=== PATIENT | female | born 1955 | race Caucasian/White ===

== ENCOUNTER 2017-12-29 08:45 | Emergency (ER) | payer OTHER ==
[~2017-12-29] VITALS: Ht 165.1 cm; Wt 99.8 kg
[2017-12-29] MEDS ORDERED: COZAAR 25 MG TA25 M1 PO (08:53)
[2017-12-29] MEDS ORDERED: ADVAIR HFA 230M12 GM INH (08:53)
[2017-12-29] MEDS ORDERED: NORCO 5-325 TA1 EACH PO (10:04)
[2017-12-29] MEDS ORDERED: IBUPROFEN 800800 M1 PO (10:04)
[2017-12-29 10:16] VITALS: BP 180/70
[2018-04-25] MEDS ORDERED: ASPIRIN325 PO (09:10)
== END 2017-12-29 10:17 | disposition home or self-care (01) ==
LOC: M.ERS 08:45
DX: S86.812A Strain of other muscle(s) and tendon(s) at lower leg level, left leg, initial encounter (principal); J44.9 Chronic obstructive pulmonary disease, unspecified; I10 Essential (primary) hypertension; W01.0XXA Fall on same level from slipping, tripping and stumbling without subsequent striking against object, initial encounter; Y93.89 Activity, other specified; Y92.89 Other specified places as the place of occurrence of the external cause; Y99.8 Other external cause status

== ENCOUNTER 2018-04-17 21:07 | Emergency (ER) | payer OTHER ==
[~2018-04-17] VITALS: Ht 165.1 cm; Wt 90.7 kg
[~2018-04-17 21:07] MED LIST: ADVAIR HFA 230M12 GM INH; COZAAR 25 MG TA25 M1 PO; IBUPROFEN 800800 M1 PO; NORCO 5-325 TA1 EACH PO
[2018-04-17] MEDS ORDERED: NORCO 5-325 TA1 EACH PO (22:05)
[2018-04-17] MEDS ORDERED: NABUMETONE 750750 M1 PO (22:05)
[2018-04-17 22:23] VITALS: BP 136/70
[2018-04-25] MEDS ORDERED: ASPIRIN325 PO (09:10)
== END 2018-04-17 22:24 | disposition home or self-care (01) ==
LOC: M.ERS 21:07
DX: S52.502A Unspecified fracture of the lower end of left radius, initial encounter for closed fracture (principal); S52.612A Displaced fracture of left ulna styloid process, initial encounter for closed fracture; J44.9 Chronic obstructive pulmonary disease, unspecified; I10 Essential (primary) hypertension; W18.09XA Striking against other object with subsequent fall, initial encounter; Y93.89 Activity, other specified; Y92.89 Other specified places as the place of occurrence of the external cause; Y99.8 Other external cause status

== ENCOUNTER → 2018-04-25 | Day surgery (SDC) | payer OTHER ==
[~2018-04-25] MED LIST changes: +ASPIRIN325 PO; +NABUMETONE 750750 M1 PO
[2018-04-25 06:45] LABS: HEMATOCRIT 40.6 % (37.0-47.0); HEMOGLOBIN 13.3 gm/dL (12.0-15.0); MCH 28.6 pg (26.0-34.0); MCHC 32.8 g/dL (28.0-37.0); MCV 87.1 fL (80.0-100.0); MPV 8.3 fl. (7.2-11.1); RBC 4.66 mil/uL (4.20-5.00); RDW-CV 14.4 % (10.5-14.5); WBC 8.4 thou/uL (4.0-11.0)
[2018-04-25 06:53] LABS: CALCIUM 8.6 mg/dL (8.5-10.1); CREATININE 0.6 mg/dL (0.6-1.3); POTASSIUM 4.5 mmol/L (3.5-5.1)
--- NOTE | 2018-04-25 13:57 | EKG ---
[place] [address] ELECTROCARDIOGRAM REPORT Name: PATRICKANDRÉS Tri Room: [facility]#: [id number] Admission: 04/25/18 Attend Phys: Rodrigo Castillo DO Discharge: Date of : 59 Report #: [id number] THIS REPORT FOR: //name// [facility] Test Date: 2018-04-25 Test Time: 06:30:56 Pat Name: ANDRÉS NGUYEN Department: Room: Gender: F Hand Turner: MALIK : 1955 Requested By: Rodrigo Castillo Order Number: [id number] Reading MD: Mark Bolanos Measurements Intervals [place] Rate: 82 P: 40 NM: 170 QRS: 17 QRSD: 111 T: 33 QT: 402 QTc: 470 Interpretive Statements Sinus rhythm Minor IVCD Low voltage, precordial leads Baseline wander in lead(s) I,II,III,aVR,aVF,V5 No previous ECG available for comparison Electronically Signed On 04-25-2018 13:57:33 CDT by Mark Bolanos [email or web address] <ELECTRONICALLY SIGNED> By: Mark Bolanos MD, [facility] 04/25/18 1357 0630 Mark Bolanos MD, [facility] /EPI
--- NOTE | 2018-05-09 08:06 | OP ---
[address] [address] OPERATIVE REPORT Name: ANDRÉS NGUYEN Room: [facility]#: [id number] Admission: 04/25/18 Attend Phys: Rodrigo Castillo DO Discharge: Date of : 59 Report #: [id number] THIS REPORT FOR: //name// CC: Rodrigo Mooney [facility] DICTATED BY: Hugo Oliver DO DATE OF SERVICE: 04/25/2018 PREOPERATIVE DIAGNOSIS: Closed comminuted Frykman VII distal radius fracture. POSTOPERATIVE DIAGNOSIS: Closed comminuted Frykman VII distal radius fracture. SURGEON: Rodrigo Castillo DO. RACK MAKER: Hugo Oliver DO. OPERATION PERFORMED: Closed reduction with Migdalia external fixation of percutaneous pinning. ANESTHESIA TYPE: General. ESTIMATED BLOOD LOSS: 5 mL. SPECIMEN REMOVED: None. COMPLICATIONS: None. FINDINGS: The patient had a very comminuted Frykman VII distal radius fracture. We did get reduction as comminution allowed. Compartments were soft and compressible and she had brisk capillary refill, status post procedure. INDICATIONS FOR PROCEDURE: The patient is seen in the clinic and x-rays reviewed from [facility], which demonstrated a Frykman type VII distal radius fracture with intra-articular comminution and overall poor alignment. We discussed the risks, benefits, complications, alternatives, indications for procedure with her and she elects to proceed with closed reduction and external fixation and percutaneous pinning of the left distal radius. These risks include but not limited to risk of infection, loss of reduction, stiffness, pain, and risks to nerves and vessels, continued numbness, weakness as well as DVT, pulmonary embolism, and risks associated with anesthesia including . She voiced understanding and wished to proceed. DESCRIPTION OF PROCEDURE: The patient was seen in the preoperative holding area. Correct operative site was marked. Written [place] [address] OPERATIVE REPORT Name: PATRICKANDRÉS Room: [facility]#: [id number] Admission: 04/25/18 Attend Phys: Rodrigo Castillo DO Discharge: Date of : 59 Report #: [id number] was transferred to the operative suite and placed supine on the operating table. She was given the benefit of general anesthesia by the anesthesia team. At this point, a timeout was performed and all of the attendants were in agreement with the correct operative site and procedure to be performed. The left upper extremity was then prepped and draped in normal sterile fashion. We then used an x-ray and a [place] to smiley our level at the second metacarpal for pin placement. A 15-blade scalpel was used to incise the skin x 2 and pins were inserted into the second metacarpal using our guide for spacing. Once these were confirmed with fluoroscopy, we turned our attention to our radial pins and a 4-cm incision was made and I bluntly taken down to the level of bone. We then placed our 2 radial pins with placement once again verified with fluoroscopy. Once these were placed, we turned our attention to reduction, a closed reduction of her distal radius and found that she had comminution on our volar tilt. We did get some good length and a pin was placed through the radial styloid to maintain its length. We then applied our external frame and all final screws were tightened. Once these were tightened, we took final x-rays. These were saved to the chart. The skin was closed using 4-0 nylon in simple interrupted fashion. A Xeroform was placed over all pin sites and percutaneous pin site for our K-wire. Once this was done, we checked our cap refill. This was found to be stable and our 4 x 4s and Kerlix and Blake wrap were placed over. Our pin were then cut down to equal size and covered with our pin caps. All needle counts were correct at the end of the case x 2. I attest Dr. Castillo was present through all critical decision making aspects of the case. DISPOSITION: The patient returned to PACU in stable condition. She was monitored until awake and stable and discharged home. She will follow up as scheduled or sooner if any problems arise. She will be given DVT prophylaxis as well p.o. analgesia as appropriate. <ELECTRONICALLY SIGNED> By: Rodrigo Castillo DO 05/09/18 0806 0836 1133Cnoah Castillo DO /nt
== END | disposition home or self-care (01) ==
LOC: M.SUR 06:03
PROVIDERS: Orthopaedic Surgery
DX: S52.592A Other fractures of lower end of left radius, initial encounter for closed fracture (principal); X58.XXXA Exposure to other specified factors, initial encounter; Y93.9 Activity, unspecified; Y92.89 Other specified places as the place of occurrence of the external cause; Y99.9 Unspecified external cause status

== ENCOUNTER → 2018-05-09 | Outpatient (CLI) | payer OTHER | LOC: M.LAB 09:57 | DX: S52.532D Colles' fracture of left radius, subsequent encounter for closed fracture with routine healing (principal); I10 Essential (primary) hypertension; J44.9 Chronic obstructive pulmonary disease, unspecified; X58.XXXD Exposure to other specified factors, subsequent encounter ==

== ENCOUNTER → 2018-05-30 | Outpatient (CLI) | payer OTHER ==
[2018-05-30 10:37] LABS: HEMOGLOBIN 13.4 gm/dL (12.0-15.0); MCH 28.5 pg (26.0-34.0); MCHC 32.7 g/dL (28.0-37.0); MCV 87.2 fL (80.0-100.0); RBC 4.7 mil/uL (4.20-5.00); RDW-CV 14.8 % (10.5-14.5); WBC 10.4 thou/uL (4.0-11.0)
[2018-05-30 10:49] LABS: POTASSIUM 4.4 mmol/L (3.5-5.1)
== END ==
LOC: M.LAB 10:21
PROVIDERS: Orthopaedic Surgery
DX: L03.114 Cellulitis of left upper limb (principal)

== ENCOUNTER → 2018-07-18 | Outpatient (CLI) | payer OTHER | LOC: M.LAB 09:39 | DX: L03.114 Cellulitis of left upper limb (principal) ==

== ENCOUNTER → 2018-11-20 | Outpatient (CLI) | payer OTHER | LOC: M.RAD 11:04 | DX: I51.7 Cardiomegaly (principal); J44.9 Chronic obstructive pulmonary disease, unspecified ==

== ENCOUNTER → 2018-11-27 | Outpatient (CLI) | payer OTHER ==
--- NOTE | 2018-11-27 13:37 | 2DMMODE ---
[place] [address] 2 D/M-MODE ECHOCARDIOGRAM Name: ANDRÉS NGUYEN Room: [facility]#: [id number] Admission: 11/27/18 Attend Phys: Irma Lehman MD Discharge: Date of : 59 Date of Service: 11/27/18 1337 Report #: [id number] THIS REPORT FOR: //name// APPROVED REPORT Study performed: 11/27/2018 11:07:57 EXAM: Comprehensive 2D, Doppler, and color-flow Echocardiogram Patient Location: Out-Patient BSA: 2.06 HR: 92 bpm BP: 120/72 mmHg Other Information Study Quality: Fair Technically limited study due to lung disease. Indications Dyspnea 2D Dimensions IVSd: 12.33 (7-11mm) LVOT Diam: 20.47 (18-24mm) LVDd: 49.25 mm PWd: 12.14 (7-11mm) Ascending Ao: 29.35 (22-36mm) LVDs: 26.47 (25-40mm) Aortic Root: 27.85 mm Volumes Left Atrial Volume (Systole) LA ESV Index: 13.90 mL/m2 Aortic Valve AoV Peak Stan.: 1.73 m/s AO Peak Gr.: 11.96 mmHg LVOT Max P.48 mmHg AO Mean Gr.: 6.68 mmHg LVOT Mean P.87 mmHg LVOT Max V: 0.93 m/s AO V2 VTI: 28.81 cm LVOT Mean V: 0.64 m/s MAYUR (VTI): 2.06 cm2 LVOT V1 VTI: 18.04 cm Mitral Valve E/A Ratio: 0.73 MV Decel. Time: 198.91 ms MV E Max Stan.: 0.57 m/s MV PHT: 57.68 [place] [address] 2 D/M-MODE ECHOCARDIOGRAM Name: BRUNA NGUYENA Tri Room: [facility]#: [id number] Admission: 11/27/18 Attend Phys: Irma Lehman MD Discharge: Date of : 59 Date of Service: 11/27/18 1337 Report #: [id number] MVA (PHT): 3.81 cm2 TDI E/Lateral E': 11.40 E/Medial E': 8.14 Medial E' Stan.: 0.07 m/s Lateral E' Stan.: 0.05 m/s Pulmonary Valve PV Peak Stan.: 1.15 m/s PV Peak Gr.: 5.31 mmHg Left Ventricle The left ventricle is normal size. There is normal LV segmental wall motion. Mild concentric left ventricular hypertrophy. Left ventricular systolic function is normal. LVEF is 60-65%. Grade I - abnormal relaxation pattern. Right Ventricle The right ventricle is normal size. The right ventricular systolic function is normal. Atria The left atrium size is normal. The right atrium size is normal. Aortic Valve Aortic valve is not well visualized. No aortic regurgitation is present. There is no aortic valvular stenosis. Mitral Valve The mitral valve is normal in structure. There is no mitral valve regurgitation noted. No evidence of mitral valve stenosis. Tricuspid Valve The tricuspid valve is grossly normal in structure. There is no tricuspid valve regurgitation noted. Pulmonic Valve Pulmonic valve is not well visualized. There is no pulmonic valvular regurgitation. Great Vessels The aortic root is normal in size. IVC is normal in size and collapses >50% with inspiration. Pericardium There is [place] [address] 2 D/M-MODE ECHOCARDIOGRAM Name: ANDRÉS NGUYEN Room: [facility]#: [id number] Admission: 11/27/18 Attend Phys: Irma Lehman MD Discharge: Date of : 59 Date of Service: 11/27/18 1337 Report #: [id number] <Conclusion> Technically limited study due to chronic lung disease. The left ventricle is normal size. There is mild concentric left ventricular hypertrophy. Left ventricular systolic function is normal. LVEF is 60-65%. Grade I - abnormal relaxation pattern. IVC is normal in size and collapses >50% with inspiration. <ELECTRONICALLY SIGNED> By: Jed Cruz MD, FACC 11/27/18 1337 36 133 Jed Cruz MD, FACC /INF
== END ==
LOC: M.CRD 10:52
DX: I11.9 Hypertensive heart disease without heart failure (principal); J44.9 Chronic obstructive pulmonary disease, unspecified; E78.5 Hyperlipidemia, unspecified; E66.8 Other obesity; Z87.891 Personal history of nicotine dependence; Z82.49 Family history of ischemic heart disease and other diseases of the circulatory system; Z83.438 Family history of other disorder of lipoprotein metabolism and other lipidemia

== ENCOUNTER → 2018-12-11 | Outpatient (CLI) | payer OTHER ==
[2018-12-11 10:28] LABS: CREATININE 0.7 mg/dL (0.6-1.3)
== END ==
LOC: M.LAB 10:00 → M.CT 11:00
PROVIDERS: Internal Medicine Pulmonary Disease
DX: J98.4 Other disorders of lung (principal); M25.78 Osteophyte, vertebrae; M48.04 Spinal stenosis, thoracic region

== ENCOUNTER 2019-01-28 17:13 | Inpatient (IN) | payer OTHER ==
[~2019-01-28] VITALS: Ht 165.1 cm; Wt 108.9 kg
[2019-01-28 17:20] VITALS: BP 115/62
[2019-01-28] MEDS ORDERED: SYMBICORT160 MCG/4. INH (17:24)
[2019-01-28 17:45] LABS: ABSOLUTE BASOPHILS 0.1 thou/uL (0.0-0.2); ABSOLUTE EOSINOPHILS 0.1 thou/uL (0.0-0.7); ABSOLUTE LYMPHOCYTES 0.6 thou/uL (0.8-5.3); ABSOLUTE MONOCYTES 0.8 thou/uL (0.0-1.2); ABSOLUTE NEUTROPHILS 7.5 thou/uL (1.6-8.1); BASOPHILS 0.6 %; EOSINOPHILS 0.6 %; HEMATOCRIT 43.7 % (37.0-47.0); HEMOGLOBIN 14.1 gm/dL (12.0-15.0); LYMPHOCYTES 7.1 %; MCH 28.7 pg (26.0-34.0); MCHC 32.4 g/dL (28.0-37.0); MCV 88.8 fL (80.0-100.0); MONOCYTES 8.7 %; MPV 8.6 fl. (7.2-11.1); NUCLEATED RBCS 0 /100WBC; PLATELET COUNT* 204 thou/uL (150-400); RBC 4.92 mil/uL (4.20-5.00); RDW-CV 15.4 % (10.5-14.5)
[2019-01-28 17:53] LABS: ANION GAP 7 mmol/L (7-16); APTT 29.6 Seconds (25.0-31.3); BUN 10 mg/dL (7-18); CALCIUM 8.3 mg/dL (8.5-10.1); CHLORIDE 100 mmol/L (98-107); CO2 30 mmol/L (21-32); CREATININE 0.6 mg/dL (0.6-1.3); GLUCOSE 138 mg/dL (70-99); POTASSIUM 3.9 mmol/L (3.5-5.1); PROTIME 10.7 Seconds (9.20-11.50); SODIUM 137 mmol/L (136-145)
[2019-01-28 18:02] LABS: ALBUMIN 3.1 g/dL (3.4-5.0); ALKALINE PHOSPHATASE 73 U/L (46-116); SGOT 19 U/L (15-37); SGPT 33 U/L (30-65); TOTAL BILIRUBIN 0.4 mg/dL (<0.1-1.0); TOTAL PROTEIN 6.9 g/dL (6.4-8.2); TROPONIN-I LEVEL <0.06 ng/mL (<0.06)
[2019-01-28 18:19] LABS: BE 2.2 mmol/L (-2 to +3); pH 7.344 (7.340-7.450)
[2019-01-28 18:25] LABS: PCO2 54.8 mmHg (35.0-45.0)
[2019-01-28 18:26] LABS: PO2 135.6 mmHg (75.0-100.0)
[2019-01-28 22:38] VITALS: BP 140/61
[2019-01-28 22:45] VITALS: BP 143/69
--- NOTE | 2019-01-29 01:03 | NUR ---
PT TRANSFERED FROM THE ER AT 2030. VITALS STABLE WITH 6L OF OXYGEN BY VENTI MASK. PT EDICATED ON FALLRISK AND VERBALIZED UNDERSTANDING. ADMISSION HISTORY/ASSESSMENT COMPLETED. FAMILY AT BEDSIDE. WILL CONTINUE TO MONITOR.
[2019-01-29 04:19] LABS: HEMATOCRIT 45.2 % (37.0-47.0); HEMOGLOBIN 14.7 gm/dL (12.0-15.0); MCHC 32.4 g/dL (28.0-37.0); MCV 89.6 fL (80.0-100.0); RBC 5.05 mil/uL (4.20-5.00); RDW-CV 15.6 % (10.5-14.5); WBC 8.8 thou/uL (4.0-11.0)
[2019-01-29 04:50] LABS: CALCIUM 8.8 mg/dL (8.5-10.1); CREATININE 0.7 mg/dL (0.6-1.3); MAGNESIUM 2.2 mg/dL (1.8-2.4); POTASSIUM 4.5 mmol/L (3.5-5.1)
--- NOTE | 2019-01-29 05:31 | NUR ---
PT ALERT AND ORIENTED. VITALS STABLE WITH 6L OF OXYGEN BY VENTIMASK. PT ASKED IF SHE CAN HAVE SOMETHING FOR COUGH, DR ELMORE NOTIFIED. MUCINEX AND BENZONATATE GIVEN ORDERED. PT DENIED PAIN. NO NAUSEA OR VOMITING. HOURLY ROUNDING COMPLETED. WILL CONTINUE TO MONITOR.
[2019-01-29 08:00] VITALS: BP 131/81
--- NOTE | 2019-01-29 11:44 | NUR ---
SW met with pt and pt parents to complete initial assessment, introduce self, and SW role. Pt alert, oriented. Pt lives at home independent with all tasks. Pt may need home oxygen and nebulizer at dc. SW to continue to follow to assist with safe dc planning.
--- NOTE | 2019-01-29 15:38 | EKG ---
[place] [address] ELECTROCARDIOGRAM REPORT Name: PATRICKANDRÉS Room: [address] IN [facility].#: [id number] Admission: 01/28/19 Attend Phys: Roxanne Roberto MD Discharge: Date of : 59 Report #: [id number] THIS REPORT FOR: //name// [facility] ED Test Date: 2019-01-28 Test Time: 17:20:50 Pat Name: ANDRÉS NGUYEN Department: Room: [facility] Gender: F Director [employer]: : 1955 Requested By: Jamil Boone Order Number: [id number] MD: Jed Cruz Measurements Intervals [place] Rate: 107 P: 51 FL: 153 QRS: 25 QRSD: 129 T: 36 QT: 329 QTc: 439 Interpretive Statements Sinus tachycardia Borderline T abnormalities, anterior leads Baseline wander in lead(s) II,III,aVF,V3 Compared to ECG 04/25/2018 06:30:56 T-wave abnormality now present Sinus rhythm no longer present Electronically Signed On 01-29-2019 15:38:09 CDT by Jed Cruz [email or web address] <ELECTRONICALLY SIGNED> By: Jed Cruz MD, FACC 01/29/19 1538 1720 1720 Jed Cruz MD, FACC /EPI
[2019-01-29 16:00] VITALS: BP 137/67
--- NOTE | 2019-01-29 18:57 | NUR ---
AM ASSESSMENT AND VITAL SIGNS COMPLETED DOCUMENTED. PT IS ON 6L/NC WARMED AND HUMIDIFIED. IV ABX AND STEROIDS GIVEN ORDERED. PT HAS BEEN UP AD ANKIT IN HER ROOM. FALL PRECAUTIONS AND HOURLY ROUNDING CONTINUE.
[2019-01-29 20:00] VITALS: BP 132/54
[2019-01-30 01:41] LABS: CHOLESTEROL 222 mg/dL (<200); HDL CHOLESTEROL 60 mg/dL (>40); LDL CHOLESTEROL 141 mg/dL (<100); TC:HDL 3.7 Ratio (Not establshd); TRIGLYCERIDE 109 mg/dL (<150); VLDL 22 mg/dL (<40)
[2019-01-30 01:42] LABS: SERUM ASSESSMENT Clear
--- NOTE | 2019-01-30 05:06 | NUR ---
PT ALERT AND ORIENTED. VITALS STABLE WITH 6L BY NC. PT DENIED PAIN. MEDS GIVEN ORDERED. NPO AT MIDNIGHT FOR STRESS TEST TODAY. HOURLY ROUNDING COMPLETED. WILL CONTINUE TO MONITOR.
--- NOTE | 2019-01-30 11:16 | CON ---
[address] [address] CONSULTATION Name: ANDRÉS NGUYEN Room: [address] IN .R.#: [id number] Admission: 01/28/19 Attend Phys: Roxanne Roberto MD Discharge: Date of : 59 Report #: [id number] THIS REPORT FOR: //name// CC: Vinicio Roberto DATE OF SERVICE: 01/29/2019 REASON FOR CONSULTATION: Respiratory failure, difficulty breathing. HISTORY OF PRESENT ILLNESS: This is a 63-year-old female patient who actually sees our pulmonary office for multiple years. She told me she had history of COPD based on the recent PFT which I do not have access to yet. She had been on Advair and switched to Symbicort and she has a rescue inhaler. The patient recently had a workup initiated including echocardiogram, CTA of the chest and sleep study that is pending per Dr. Lehman. She presented to the hospital with increasing shortness of breath, cough and wheezes of few days' duration associated with yellow sputum production that worsened on the day of the hospitalization. The patient's mother at the bedside who told me that the patient had croup when she was 2 months old and since then she had recurrent attacks of bronchitis and she always had a cough. The patient herself was exposed to secondhand smoke growing up with her parents, but also she smoked herself for almost 20-25 years, although she quit long time ago. She tells me she rarely gets cold, but if she gets cold it goes down entire chest and become wheezy and coughing. She had no fever. She thought she had a sick contact with a coworker. She has no sore throat, but she has runny nose. She has wheezes. She had no lower extremity edema, no PND, no orthopnea, no chest pain other than some discomfort from the severe cough. The patient has snoring and fatigue and tiredness in addition to some sleepiness. ALLERGIES: No known drug allergies. HOME MEDICATIONS: She is on Symbicort, aspirin, losartan, rescue inhaler. FAMILY HISTORY: Negative for asthma. PAST MEDICAL HISTORY: Asthma/COPD history, history of distal radius fracture, history of fracture ulnar styloid, history of knee strain, history of wrist fracture on the left side, history of hypertension. PAST SURGICAL HISTORY: [place] [address] CONSULTATION Name: ANDRÉS NGUYEN Room: [address]#: [id number] Admission: 01/28/19 Attend Phys: Roxanne Roberto MD Discharge: Date of : 59 Report #: [id number] SOCIAL HISTORY: Smoked for 20 years before, quit 20 years ago. Does not drink alcohol. Does not abuse drugs. REVIEW OF SYSTEMS: CONSTITUTIONAL: She reported some weakness, fatigue, may be some low-grade fever and tiredness. She had no weight change. EYES: She had no lacrimation, no floaters noted in the eye. No itching. EAR, NOSE AND THROAT. She has a runny nose, but no sore throat. No difficulty swallowing. No dysphagia. RESPIRATORY: As above. CARDIOVASCULAR: She has no lower extremity edema. No chest pain, no palpitation, no syncope. GASTROINTESTINAL: She had no reflux disease. No heartburn. No regurgitation. No abdominal pain. GENITOURINARY: She has no dysuria, frequency or urgency. MUSCULOSKELETAL: No deformities, no contractures, no swelling in the knees. SKIN: No rash. All systems reviewed with the patient and negative other than as mentioned above. PHYSICAL EXAMINATION: VITAL SIGNS: On examination, she is on 8 liters oxygen using a Ventimask with saturation more than 90%, blood pressure 130/81, respiratory rate 20 and temperature 36.3. GENERAL: Overweight lady with elevated BMI. HEAD: Normocephalic, atraumatic. ORAL CAVITY: Mallampati of 3 with crowded oral airways. NECK: Thick, full range of movement, nontender. Trachea is central. No masses felt. Externally looks normal. Nasal cavity, patent passages. CHEST: Diminished air movement bilaterally, prolonged expiratory phase with wheezes. No tenderness, no crackles, no rhonchi. HEART: S1, S2, no murmur. ABDOMEN: Obese, soft, lax, benign, nontender. No rebound, no rigidity, no masses felt. Positive bowel sounds. EXTREMITIES: Lower extremity, no edema, no calf tenderness. MUSCULOSKELETAL: Normal inspection. NEUROLOGIC: Moving 4 extremities spontaneously. No focal weakness. Cranial nerves grossly normal. SKIN: Normal for age and race, no rash. PSYCHIATRIC: Mood and affect appropriate. Good insight and judgment. LYMPHATICS: No palpable lymph nodes. LABORATORY DATA: Her ABGs on the Ventimask, 7.34/54/135. Her white blood count is 9 with hemoglobin 14.1 and platelets of 204. Her INR is 1. Her creatinine is 0.7 with BUN of 10, chloride ____. Sodium 139. BNP is slightly elevated at [address] [address] CONSULTATION Name: ANDRÉS NGUYEN Room: [address]#: [id number] Admission: 01/28/19 Attend Phys: Roxanne Roberto MD Discharge: Date of : 59 Report #: [id number] 367. The patient had a CT in November that did not show pulmonary embolus. Her echo a few weeks ago demonstrated EF of 60% and grade 1 diastolic dysfunction. IMPRESSION: 1. Acute hypoxic and hypercapnic respiratory failure, likely chronic. 2. Chronic obstructive pulmonary disease/asthma overlap. 3. Chronic obstructive pulmonary disease exacerbation. 4. Respiratory virus illness. 5. Bronchitis. 6. Hypersomnia, snoring, fatigue, suggestive for obstructive sleep apnea. The patient's clinical history was secondhand smoke exposure and history of active smoking in the past; on top of that, she had symptoms started during childhood and progressed in her 20s and since then she has been having more symptoms of wheezes, cough and bronchospasm. Highly suspect an element of asthma; however, most likely this is an asthma/overlap. At baseline, she has 2 liters oxygen at night and she has sleep study pending as an outpatient. She had an element of diastolic dysfunction. At this point, the patient will be treated for her acute illness with steroids, antibiotics, scheduled nebulization treatment, symptomatic cough management. I will initiate Singulair for her. I agree with gentle diuresis on an as needed basis. I encouraged her to spend more time out of bed. I will add Brovana to her medications. I would recommend at the time of discharge to be on Singulair and resume her Advair. She would benefit from nebulizer machine at home. Thank you for the consult. We will continue to follow along with you. Discussed with the patient and her mother at the bedside. Of note, we will give her a trial of BiPAP tonight. She is not too excited about the idea, but she told me she will trial it. <ELECTRONICALLY SIGNED> By: Wade Chatterjee MD 01/30/19 1116 0948 2043Dmarya Chatterjee MD /nt
[2019-01-30 15:53] VITALS: BP 140/68
--- NOTE | 2019-01-30 17:55 | CARDNUC ---
[place] [address] CARDIAC NUCLEAR IMAGING REPORT Name: ANDRÉS NGUYEN Room: [address] IN [facility]#: [id number] Admission: 01/28/19 Attend Phys: Roxanne Roberto, Discharge: Date of : 59 Date of Service: 01/30/19 1754 Report #: [id number] THIS REPORT FOR: //name// APPROVED REPORT Study performed: 01/29/2019 12:53:00 Indication: COPD exacerbation, increased fatigue. Patient Location: In-Patient Room #: 108 Stress Tech: Brittani Wise Stress Nurse: Danita Gray RN BMI: 0 Medical History Medical History: COPD, Fatigue, Former Smoker, No history of CAD, Obesity , SOB, Weakness, O2 6L. Medications: Solu-Medrol, Losartan. Allergies: No known drug allergies Cardiac Risk Factors: Age, SOB, Past Smoker, COPD. Previous Cardiac Procedures: None Pretest Chest Pain Characteristics: No chest pain Exercise History: Indeterminate Physical Disabilities: BMI, COPD, 6 L O2 VENTI MASK. Meds Held (24 hrs): NONE Pharmacologic Stress Pharmacologic stress test was performed by injecting Regadenoson 0.4 mg IV push over 10-15 seconds immediately followed by the intravenous injection of 32.3 mCi of Tc-99m Sestamibi. Time of stress injection: 08:55 Date: 01/30/2019 Administration Route: IV Administration Site: Right Hand Heart Rate at time of stress injection: 111 bpm. Gated Stress SPECT was performed 40 minutes after stress injection. The images were gated to evaluate regional wall motion and calculate left ventricular ejection fraction. Stress Test Details Stress Test: Pharmacologic stress testing performed using 0.4 mg of regadenoson per 5 mL given IV over 10 seconds. Reason for pharmacologic stress test: COPD, 6L [place] [address] CARDIAC NUCLEAR IMAGING REPORT Name: ANDRÉS NGUYEN Room: [address]#: [id number] Admission: 01/28/19 Attend Phys: Roxanne Roberto, Discharge: Date of : 59 Date of Service: 01/30/19 1754 Report #: [id number] HR Max Heart Rate (APMHR): 159 bpm Resting HR: 89 bpm Target HR (85% APMHR): 135 bpm Max HR Achieved: 111 bpm % of APMHR: 69 Recovery HR: 92 bpm BP Resting BP: 120/62 mmHg Max BP: 134/66 mmHg Recovery BP: 133/66 mmHg ECG Resting ECG: Sinus Rhythm Stress ECG: Sinus Tachycardia ST Change: None Arrhythmia: None Recovery ECG: Sinus Rhythm Recovery ST Change: None Recovery Arrhythmia: None Clinical Reason for Termination: Completed protocol Stress Symptoms: None Exercise duration: 0 min 00 sec Exercise capacity: 1.00 METs The patient had no significant symptoms with Lexiscan infusion. Nurse Comments 63 YEAR OLD FEMALE INPATIENT PRESENTED WITH COPD EXACERBATION AND INCREASED FATIGUE. PATIENT ON 6L O2 VENTI MASK. PATIENT TOLERATED SITTING LEXISCAN WELL. RECOVERY UNREMARKABLE WITH PO CAFFEINE, EFFECTIVE. PATIENT ESCORTED VIA WHEELCHAIR BY STAFF TO NUCLEAR MEDICINE FOR IMAGES. PATIENT STABLE WITH NO COMPLAINTS AT THIS TIME. Stress ECG Conclusion The baseline 12-lead EKG shows sinus rhythm without significant ST or T wave abnormality. EKGs obtained during and post Lexiscan infusion show sinus rhythm and sinus tachycardia with no significant ST or T wave changes when compared to baseline. There were no significant stress-induced arrhythmias. Study Quality Study: Good Artifact: [place] [address] CARDIAC NUCLEAR IMAGING REPORT Name: ANDRÉS NGUYEN Room: [address]#: [id number] Admission: 01/28/19 Attend Phys: Roxanne Roberto, Discharge: Date of : 59 Date of Service: 01/30/19 1754 Report #: [id number] Study Data Post stress, the left ventricular ejection was 65%.. Perfusion Post stress perfusion images show no defect to suggest infarct or ischemia. Wall Motion Normal left ventricular wall motion. Nuclear Conclusion ECG Findings: negative for ischemia Clinical Findings: negative for ischemia Nuclear Findings: negative for ischemia Exercise Capacity: not assessed Left Ventricular Function: normal Risk Study: low Myocardial perfusion images show no defect to suggest infarct or ischemia. Left ventricular systolic function appears normal on gated studies. This is a low risk study. <Conclusion> The baseline 12-lead EKG shows sinus rhythm without significant ST or T wave abnormality. EKGs obtained during and post Lexiscan infusion show sinus rhythm and sinus tachycardia with no significant ST or T wave changes when compared to baseline. There were no significant stress-induced arrhythmias. <ELECTRONICALLY SIGNED> By: eJd Cruz MD, [facility] 01/30/19 1754 53 [phone] Jed Cruz MD, FACC /INF
--- NOTE | 2019-01-30 19:00 | NUR ---
PATIENT PLEASANT AND COOPERATIVE THRU SHIFT. SCHEDULED TESTING COMPLETED. 20GA SL INSERTED TO LT AC FOR SCAN, DISCONTINUED THIS AFTERNOON. COTTON BALL/TAPE APPLIED TO SITE, INFULTRATED. MOTHER PRESENT DURING SHIFT. PATIENT INDEP IN ROOM, WEARING HI FLOW O2 AT 6L. NO ACUTE DISTRESS NOTED. ~TJRN
[2019-01-30 20:54] VITALS: BP 148/68
--- NOTE | 2019-01-30 23:34 | NUR ---
PT TRANSFERED FROM THE ER AT 1905 WITH HIS . VITALS, SpO2 STABLE RA. NO PAIN AT TIME. FALL RISKS AGREEMENT SIGNED. ADMISSION HISTORY/ASSESSMENT COMPLETED. WILL CONTINUE TO MONITOR.
--- NOTE | 2019-01-31 04:52 | NUR ---
PT REMAINED ALERT AND ORIENTED. VITALS STABLE WITH 6L BY NC. DIET RESUMED AND PT TOLERATED DIET WELL. MEDS GIVEN ORDERED. PT DENIED PAIN. HOURLY ROUNDING COMPLETED. WILL CONTINUE TO MONITOR.
[2019-01-31 07:40] VITALS: BP 137/54
[2019-01-31 16:38] VITALS: BP 162/84
--- NOTE | 2019-01-31 18:28 | NUR ---
PATIENT PLEASANT AND COOPERATIVE THRU SHIFT. CONVERSANT, SOME DYSPNEA W/ CONVERSATION AT TIMES. O2 4L/NC AT THIS TIME, WITH HUMIDIFIER. PATIENT DONI WELL. NOTED COUGH, NON PROD. PATIENT STATES SOME DISCOMFORT IN ABD W/ COUGHING. BIPAP IN RM, TO BE USED AT HS TONITE. PATIENT STATES VERBALLY OF UNDERSTANDING. RT TO ASST W/ SETUP. IV IN RT HAND, NOTED WNL, FLUSHES EASILY, PATIENT DECLINES TO HAVE IV CHANGED TODAY. ~TJRN
[2019-01-31 20:11] VITALS: BP 162/77
[2019-02-01 03:42] LABS: HEMATOCRIT 41.2 % (37.0-47.0); HEMOGLOBIN 13.3 gm/dL (12.0-15.0); MCH 28.6 pg (26.0-34.0); MCHC 32.3 g/dL (28.0-37.0); MCV 88.7 fL (80.0-100.0); MPV 8.8 fl. (7.2-11.1); RBC 4.64 mil/uL (4.20-5.00); RDW-CV 15.1 % (10.5-14.5); WBC 9.9 thou/uL (4.0-11.0)
[2019-02-01 04:01] LABS: CALCIUM 8.8 mg/dL (8.5-10.1); CREATININE 0.6 mg/dL (0.6-1.3); MAGNESIUM 2.4 mg/dL (1.8-2.4); POTASSIUM 4.7 mmol/L (3.5-5.1)
--- NOTE | 2019-02-01 04:40 | NUR ---
PATIENT HAS REMAINED ALERT AND ORIENTED X 4 THROUGHOUT THE SHIFT AND RESTING AT INTERVALS ON HOURLY ROUNDS. BIPAP TRIAL TONIGHT ONGOING. HAS DONE WELL THUS FAR. UP INDEPENDENTLY IN THE ROOM. MEDS PER ORDERS. VITAL SIGNS STABLE. CONTINUE TO MONITOR.
[2019-02-01 08:00] VITALS: BP 178/82
[2019-02-01] MEDS ORDERED: CPAP MISCELL (12:58)
--- NOTE | 2019-02-01 15:30 | NUR ---
SPOKE WITH PT. SHE SAID SHE DOES HAVE O2 THROUGH [facility]. ONLY WEARS AT NIGHT. IF NEEDS CONTINUOUSLY WILL NEED RESTING AND EXERCISE SATS TO QUALIFY FOR PORTABLE TANKS. ORDER FOR NEBULIZER ON CHART. FAXED TO [facility] WITH H&P,PULM.CONSULT,FACE SHEET AND ORDER. PT.FEELS SHE WILL BE HERE UNTIL MONDAY.
[2019-02-01 16:02] VITALS: BP 157/61
[2019-02-01 20:25] VITALS: BP 145/69
--- NOTE | 2019-02-02 04:54 | NUR ---
PATIENT HAS REMAINED ALERT AND ORIENTED X 4 THROUGHOUT THE SHIFT AND RESTING QUIETLY OVERNIGHT. HAS TOLERATED BIPAP WELL. MEDS PER ORDERS. VITAL SIGNS STABLE. CONTINUE TO MONITOR.
[2019-02-02 08:30] VITALS: BP 147/64
[2019-02-02 13:09] LABS: GLYCOHEMOGLOBIN (HGB A1C) 6.5 % (4.8-5.6)
[2019-02-02 16:00] VITALS: BP 138/98
--- NOTE | 2019-02-02 16:34 | NUR ---
ASSUMED CARE OF PATIENT AT 0700. ALERT AND ORIENTED X 4. VITAL SIGNS STABLE ON 3L O2 NASAL CANULA. AFEBRILE. IV PATENT AND SALINE LOCKED. DENIES PAIN AND NAUSEA AT THIS TIME. UP AND AMBULATING AROUND ROOM. MEDICATIONS GIVEN PER MAR. HOURLY ROUNDS MAINTAINED THROUGHOUT THE SHIFT. CALL LIGHT WITHIN REACH. NURSING WILL CONTINUE TO MONITOR.
[2019-02-02 20:00] VITALS: BP 160/67
--- NOTE | 2019-02-03 04:43 | NUR ---
PT ALERT AND ORIENTED. VITALS, SpO2 STABLE WITH 1L O2 BY NC. MEDS GIVEN ORDERED. BREATHING TREATMENT Q4H. PT USED BIPAP HS, AND TOLERATED WELL. NO PAIN. HOURLY ROUNDING COMPLETED. WILL CONTINUE TO MONITOR.
[2019-02-03 08:40] VITALS: BP 164/68
[2019-02-03 16:56] VITALS: BP 172/74
--- NOTE | 2019-02-03 19:05 | NUR ---
ASSUMED CARE OF PATIENT AT 0700. ALERT AND ORIENTED X 4. VITAL SIGNS STABLE ON 2L O2 NASAL CANULA. AFEBRILE. IV PATENT AND SALINE LOCKED. DENIES PAIN AND NAUSEA. AMBULATING AROUND ROOM. HOURLY ROUNDS MAINTAINED THROUGHOUT THE SHIFT. CALL LIGHT WITHIN REACH. NURSING WILL CONTINUE TO MONITOR.
[2019-02-03 21:20] VITALS: BP 155/62
--- NOTE | 2019-02-04 06:08 | NUR ---
PATIENT HAS SLEPT WELL THROUGHOUT THE NIGHT. VSS ON RA. NO C/O PAIN. PATIENT IS UP AD-ANKIT AND STEADY. MEDICATIONS GIVEN ORDERED AND CHARTED. IV IN RIGHT FOREARM-SL. PATIENT INSTRUCTED TO USE CALL LIGHT WHEN NEEDING ASSISTANCE. HOURLY ROUNDS MADE. WILL CONTINUE WITH PLAN OF CARE AND NURSING TO MONITOR.
[2019-02-04 08:00] VITALS: BP 170/73
[2019-02-04] MEDS ORDERED: SINGULAIR 10 MG10 M1 PO (08:19)
[2019-02-04] MEDS ORDERED: PREDNISONE 10 M10 MG PO (08:19)
[2019-02-04] MEDS ORDERED: AZITHROMYCIN250 MG PO (08:19)
[2019-02-04] MEDS ORDERED: MUCINEX600 MG PO (08:19)
[2019-02-04] MEDS ORDERED: PEPCID20 MG PO (08:19)
[2019-02-04] MEDS ORDERED: VENTOLIN HFA 1818 GM INH (08:19)
[2019-02-04] MEDS ORDERED: CEFDINIR300 MG PO (08:19)
[2019-02-04] MEDS ORDERED: BENZONATATE100 MG PO (08:19)
[2019-02-04] MEDS ORDERED: LIPITOR10 MG PO (08:29)
[2019-02-04 09:54] VITALS: BP 170/73
--- NOTE | 2019-02-04 10:08 | NUR ---
CM SENT D/C ORDERS AND SCRIPT FOR O2, ALONG W/ O2 STATS TO [facility].
[2019-02-04 11:27] VITALS: BP 170/73
--- NOTE | 2019-02-04 12:05 | NUR ---
PT DISCHARGED AND LEFT UNIT BY WHEELCHAIR AT 1159 WITH NURSING STAFF AND FRIEND. PT STABLE UPON DISCHARGE. IV OUT. PAPER SCRIPTS AND CARE NOTES GIVEN. HOME OXYGEN DROPPED OFF AND SENT HOME WITH PT. PERSONAL BELONGINGS SENT WITH PT.
== END 2019-02-04 12:00 | disposition home or self-care (01) | DRG 177 ==
LOC: M.ERS 17:13 → M.TBA-ER 18:18 → M.ORTHSURG 18:18
PROVIDERS: Emergency Medicine; Registered Nurse; ADMIT Internal Medicine
DX: J15.6 Pneumonia due to other Gram-negative bacteria (principal); J96.22 Acute and chronic respiratory failure with hypercapnia; J96.21 Acute and chronic respiratory failure with hypoxia; J44.1 Chronic obstructive pulmonary disease with (acute) exacerbation; I50.30 Unspecified diastolic (congestive) heart failure; J44.0 Chronic obstructive pulmonary disease with (acute) lower respiratory infection; G47.33 Obstructive sleep apnea (adult) (pediatric); E03.8 Other specified hypothyroidism; E78.5 Hyperlipidemia, unspecified; J40 Bronchitis, not specified as acute or chronic; I11.0 Hypertensive heart disease with heart failure; E66.01 Morbid (severe) obesity due to excess calories; Z79.82 Long term (current) use of aspirin; Z79.899 Other long term (current) drug therapy; Z87.891 Personal history of nicotine dependence; Z87.81 Personal history of (healed) traumatic fracture; Z68.39 Body mass index [BMI] 39.0-39.9, adult

== ENCOUNTER → 2019-03-01 | Outpatient (CLI) | payer OTHER ==
[~2019-03-01] MED LIST changes: +AZITHROMYCIN250 MG PO; +BENZONATATE100 MG PO; +CEFDINIR300 MG PO; +CPAP MISCELL; +LIPITOR10 MG PO; +MUCINEX600 MG PO; +PEPCID20 MG PO; +PREDNISONE 10 M10 MG PO; +SINGULAIR 10 MG10 M1 PO; +SYMBICORT160 MCG/4. INH; +VENTOLIN HFA 1818 GM INH
== END ==
LOC: M.RAD 09:03
DX: I11.9 Hypertensive heart disease without heart failure (principal); J44.0 Chronic obstructive pulmonary disease with (acute) lower respiratory infection

== ENCOUNTER 2020-12-04 11:25 | Inpatient (IN) | payer OTHER ==
[~2020-12-04] VITALS: Ht 165.1 cm; Wt 117.0 kg
[2020-12-04 11:33] VITALS: BP 136/63
[2020-12-04 12:05] LABS: ABSOLUTE BASOPHILS 0.1 thou/uL (0.0-0.2); ABSOLUTE EOSINOPHILS 0.3 thou/uL (0.0-0.7); ABSOLUTE LYMPHOCYTES 1.2 thou/uL (0.8-5.3); ABSOLUTE MONOCYTES 0.7 thou/uL (0.0-1.2); ABSOLUTE NEUTROPHILS 10.7 thou/uL (1.6-8.1); BASOPHILS 0.6 %; EOSINOPHILS 2.5 %; HEMATOCRIT 45.8 % (37.0-47.0); LYMPHOCYTES 9.4 %; MCH 25.2 pg (26.0-34.0); MCHC 30.6 g/dL (28.0-37.0); MCV 82.4 fL (80.0-100.0); MONOCYTES 5.5 %; MPV 8.5 fl. (7.2-11.1); NUCLEATED RBCS 0 /100WBC; PLATELET COUNT* 307 thou/uL (150-400); RBC 5.56 mil/uL (4.20-5.00); RDW-CV 16.3 % (10.5-14.5); WBC 13.1 thou/uL (4.0-11.0)
[2020-12-04 12:12] LABS: CALCIUM 8.6 mg/dL (8.5-10.1); CREATININE 0.6 mg/dL (0.6-1.3); POTASSIUM 4.6 mmol/L (3.5-5.1)
[2020-12-04 12:16] LABS: APTT 25.6 Seconds (25.0-31.3); PROTIME 10.7 Seconds (9.20-11.50)
[2020-12-04 12:23] LABS: ALBUMIN 3.3 g/dL (3.4-5.0); TOTAL BILIRUBIN 0.6 mg/dL (<0.1-1.0); TOTAL PROTEIN 7.7 g/dL (6.4-8.2)
--- NOTE | 2020-12-04 15:20 | EKG ---
[place] [address] ELECTROCARDIOGRAM REPORT Name: PATRICKANDRÉS Room: [place] [address] ADM IN [facility]#: [id number] Admission: 12/04/20 Attend Phys: Roxanne Roberto, Discharge: Date of : 59 Date of Service: 12/04/20 1149 Report #: [id number] THIS REPORT FOR: //name// [facility] ED Test Date: 2020-12-04 Test Time: 11:49:04 Pat Name: ANDRÉS NGUYEN Department: Room: [facility] Gender: F Change Attendant: RODRIGO : 1955 Requested By: Syed Rebollar Order Number: [id number] MD: Vinicio Adame Measurements Intervals [place] Rate: 93 P: 22 WA: 161 QRS: -12 QRSD: 80 T: 33 QT: 357 QTc: 445 Interpretive Statements Sinus rhythm poor r wave progression Baseline wander in lead(s) V2 Compared to ECG 01/28/2019 17:20:50 Sinus tachycardia no longer present Electronically Signed On 12-04-2020 15:20:15 CDT by Vinicio Adame [email or web address] <ELECTRONICALLY SIGNED> By: Vinicio Adame MD, FAC 12/04/20 1520 1149 1149 Vinicio Adame MD, FAC /EPI
[2020-12-04 15:44] VITALS: BP 124/73
[2020-12-04 15:53] VITALS: BP 144/73
[2020-12-04] MEDS ORDERED: COZAAR 25 MG TA25 M1 PO (17:07)
[2020-12-04] MEDS ORDERED: FUROSEMIDE 20 M20 MG PO (17:07)
[2020-12-04] MEDS ORDERED: ADVAIR HFA 230M12 GM INH (17:08)
[2020-12-04] MEDS ORDERED: INCRUSE ELLI62.5 MCG INH (17:08)
[2020-12-04] MEDS ORDERED: COMBIVENT INH (17:09)
--- NOTE | 2020-12-04 17:34 | NUR ---
PT ADMITTED TO ROOM 212 VIA CART FROM ED AT APPROX 1550, REPORT RECEIVED FROM AQUILES VELÁZQUEZ. PT AOX4, C/O SHORTNESS OF BREATH, ESPECIALLY WHEN MOVING AROUND. ADMISSION ASSESSMENT AND HISTORY COMPLETED CHARTED, HOME MEDS RECONCILED. PT ORIENTED TO ROOM AND CALL LIGHT. GOAL IS TO KEEP SATS ABOVE 90%, PULM CONSULT IN PLACE.
[2020-12-05 00:42] VITALS: BP 135/68
[2020-12-05 04:04] LABS: HEMATOCRIT 44.2 % (37.0-47.0); HEMOGLOBIN 13.5 gm/dL (12.0-15.0); MCH 25.5 pg (26.0-34.0); MCHC 30.5 g/dL (28.0-37.0); MCV 83.8 fL (80.0-100.0); MPV 8.7 fl. (7.2-11.1); RBC 5.27 mil/uL (4.20-5.00); WBC 11.2 thou/uL (4.0-11.0)
[2020-12-05 04:14] LABS: CALCIUM 8.5 mg/dL (8.5-10.1); CREATININE 0.6 mg/dL (0.6-1.3); MAGNESIUM 2.6 mg/dL (1.8-2.4); POTASSIUM 5.2 mmol/L (3.5-5.1); TOTAL BILIRUBIN 0.4 mg/dL (<0.1-1.0); TOTAL PROTEIN 7.1 g/dL (6.4-8.2)
[2020-12-05 05:27] VITALS: BP 173/62
[2020-12-05 08:00] VITALS: BP 128/61
[2020-12-05 11:28] VITALS: BP 121/61
[2020-12-05 16:00] VITALS: BP 122/60
[2020-12-05 23:47] VITALS: BP 133/69
[2020-12-06 04:29] VITALS: BP 123/55
[2020-12-06 04:45] LABS: HEMATOCRIT 44.3 % (37.0-47.0); HEMOGLOBIN 13.5 gm/dL (12.0-15.0); MCH 25.6 pg (26.0-34.0); MCHC 30.5 g/dL (28.0-37.0); MCV 83.9 fL (80.0-100.0); RBC 5.28 mil/uL (4.20-5.00); RDW-CV 15.9 % (10.5-14.5); WBC 14.4 thou/uL (4.0-11.0)
[2020-12-06 05:01] LABS: CALCIUM 8.5 mg/dL (8.5-10.1); CREATININE 0.5 mg/dL (0.6-1.3); MAGNESIUM 2.5 mg/dL (1.8-2.4); POTASSIUM 4.7 mmol/L (3.5-5.1)
[2020-12-06 08:00] VITALS: BP 135/60
[2020-12-06] MEDS ORDERED: LEVOFLOXACIN500 MG PO (08:59)
[2020-12-06] MEDS ORDERED: PREDNISONE 10 M10 M1 PO (08:59)
[2020-12-06] MEDS ORDERED: BENZONATATE100 MG PO (08:59)
--- NOTE | 2020-12-06 11:36 | NUR ---
Spoke with [facility]. They do not need any orders, as she is already on service. They have not serviced her oxygen since 2019. They will send a portable tank to the hospital tomorrow AM [id number] to prepare for discharge. When she arrives home, patient can coordinate bead picker of other O2 tanks. Educated patient.
[2020-12-06 12:10] VITALS: BP 128/64
[2020-12-06 16:15] VITALS: BP 146/69
[2020-12-06 20:06] VITALS: BP 153/65
--- NOTE | 2020-12-07 04:11 | NUR ---
Pt reports she started her period; however, her last period was 18 years ago. She asked if the steroids may have led to her having her period. VSS. States she is hopeful of being discharged today. Will continue to monitor.
[2020-12-07 08:00] VITALS: BP 136/75
[2020-12-07 14:21] VITALS: BP 136/75
--- NOTE | 2020-12-07 15:29 | NUR ---
ASSUMED PT CARE AT 0730, PT AOX4, NO C/O PAIN, GETS SOA WHEN WALKING AROUND. PT WORKED W/ RT AND REQUIRES LESS O2 WHEN WALKING AROUND TODAY COMPARED TO YESTERDAY SO DC ORDERS RECEIVED. DC INSTRUCTIONS, CARE NOTES, SCRIPTS AND F/U APPTS GIVEN TO PT. PT COMMUNICATES UNDERSTANDING OF DC TEACHING. IV AND SCREWHEAD POLISHER REMOVED. PT DC'D BY WC W/ NURSING STAFF AND ALL PAPERWORK AND PERSONAL BELONGINGS TO OWN VEHICLE AT APPROX 1325.
[2020-12-07 15:35] VITALS: BP 136/75
== END 2020-12-07 15:25 | disposition home or self-care (01) | DRG 189 ==
LOC: M.ERS 11:25 → M.TBA-ER 12:47 → M.2W 15:37
PROVIDERS: Emergency Medicine; ADMIT Internal Medicine; ATTEND Internal Medicine
DX: J96.21 Acute and chronic respiratory failure with hypoxia (principal); J44.1 Chronic obstructive pulmonary disease with (acute) exacerbation; I50.32 Chronic diastolic (congestive) heart failure; Z20.822 Contact with and (suspected) exposure to COVID-19; J96.22 Acute and chronic respiratory failure with hypercapnia; G47.33 Obstructive sleep apnea (adult) (pediatric); I11.0 Hypertensive heart disease with heart failure; Z99.81 Dependence on supplemental oxygen; Z87.891 Personal history of nicotine dependence

== ENCOUNTER → 2020-12-23 | Outpatient (CLI) | payer OTHER ==
[~2020-12-23] MED LIST changes: +COMBIVENT INH; +FUROSEMIDE 20 M20 MG PO; +INCRUSE ELLI62.5 MCG INH; +LEVOFLOXACIN500 MG PO; +PREDNISONE 10 M10 M1 PO
[2020-12-23 12:43] LABS: BE 6.3 mmol/L (-2 to +3); PO2 87.4 mmHg (75.0-100.0); pH 7.357 (7.340-7.450)
[2020-12-23 12:48] LABS: PCO2 61.9 mmHg (35.0-45.0)
== END ==
LOC: M.LAB 11:58
PROVIDERS: ATTEND Internal Medicine Critical Care Medicine
DX: J96.12 Chronic respiratory failure with hypercapnia (principal); J44.9 Chronic obstructive pulmonary disease, unspecified

== ENCOUNTER → 2021-01-12 | Outpatient (CLI) | payer OTHER | LOC: M.ULTRA 11:03 | PROVIDERS: ATTEND Internal Medicine Critical Care Medicine | DX: R60.0 Localized edema (principal) ==

== ENCOUNTER → 2021-10-06 | Outpatient (CLI) | payer OTHER | LOC: M.LAB 11:32 | PROVIDERS: ATTEND Internal Medicine Critical Care Medicine | DX: J45.50 Severe persistent asthma, uncomplicated (principal) ==